=== PATIENT | female | born 1985 | race Caucasian/White ===

== ENCOUNTER → 2016-09-12 | Outpatient (CLI) | payer MEDICARE, OTHER | LOC: OPSV 15:56 | DX: Z48.00 Encounter for change or removal of nonsurgical wound dressing (principal) | CPT/HCPCS: G0463 ==

== ENCOUNTER 2016-09-14 14:55 | Emergency (ER) | payer MEDICARE, OTHER ==
[2016-09-14 17:27] LABS: HEMOGLOBIN 14.3 gm/dl (12.3-15.3); RED BLOOD COUNT 4.76 M/UL (4.00-5.10); WHITE BLOOD COUNT 12.4 K/UL (4.5-11.0)
[2016-09-14 17:46] LABS: BUN/CREATININE RATIO 13 (0-10)
== END 2016-09-14 20:51 | disposition home or self-care (01) ==
LOC: ER1 14:55
PROVIDERS: Nurse Practitioner Family
DX: R11.10 Vomiting, unspecified (principal); F17.210 Nicotine dependence, cigarettes, uncomplicated
CPT/HCPCS: 36415; 80053; 81001; 82150; 83690; 84703; 85025; 87081; 87086; 87880; 96361; 96374; 96375; 99284; J2550; J2765; J7030; J7050; Q9962

== ENCOUNTER 2016-12-06 21:20 | Emergency (ER) | payer OTHER, MEDICARE | END 2016-12-07 00:01 | disposition home or self-care (01) | LOC: ER1 21:20 | DX: M41.9 Scoliosis, unspecified (principal); T22.012A Burn of unspecified degree of left forearm, initial encounter; V67.5XXA Driver of heavy transport vehicle injured in collision with fixed or stationary object in traffic accident, initial encounter; W22.11XA Striking against or struck by driver side automobile airbag, initial encounter; Y93.89 Activity, other specified; Y92.410 Unspecified street and highway as the place of occurrence of the external cause | CPT/HCPCS: 72040; 72070; 72100; 73090; 73130; 99284 ==